=== PATIENT | male | born 1950 | race Two or more races ===

== ENCOUNTER → 2019-07-09 | Outpatient (CLI) | payer MEDICARE, MEDICAID ==
--- NOTE | 2019-07-09 12:24 | Diagnostic Imaging Report ---
Indication: Cough Technique: 2 views of the chest Comparison: None Findings: Lungs and pleural spaces are clear. The heart size is upper limits of normal. The aorta is slightly tortuous. Impression: Negative
== END | disposition home or self-care (01) ==
LOC: RAD 11:33
DX: R05 Cough (principal); I10 Essential (primary) hypertension
CPT/HCPCS: 71046